=== PATIENT | female | born 1995 | race Caucasian/White ===

== ENCOUNTER 2022-07-15 14:20 | Inpatient (IN) | payer SELFPAY ==
[2022-07-15 14:45] VITALS: BP 116/67; PULSE 90; RESP 16; TEMP 37.1; O2SAT 98
[2022-07-15 15:26] LABS: Absolute Lymphocyte Count 1.56 X10^3/uL (0.83-4.51); Absolute Neutrophil Count 16.7 X10^3/uL (2.0-7.7); Basophil# 0.03 X10^3/uL; Basophil% 0.2 % (0-1); Hematocrit 34.2 % (37-47); Hemoglobin 11.8 g/dL (12.0-15.0); Lymphocyte # 1.56 X10^3/ul (0.83-4.51); Lymphocyte % 8.1 % (19-41); Mean Corp Hgb Conc 34.5 g/dL (32-36); Mean Corpuscular Hgb 31.4 pg (27.0-32.0); Mean Platelet Vol. 10.3 fl (6.2-12.0); Monocyte# 0.76 X10^3/uL; NRBC Flagged by Analyzer 0 % (0-5); Neutrophil # 16.74 X10^3/uL (2.7-7.7); Platelet Count 242 K/mm3 (150-450); RBC Distribution Width CV 12.4 % (11.6-14.6); RBC Distribution Width SD 40.7 fl (35.1-43.9); Red Blood Count 3.76 M/mm3 (4.2-5.4); White Blood Count 19.2 K/mm3 (4.4-11.0)
[2022-07-15 16:25] LABS: Syphilis Antibodies Non-reactive
[2022-07-15 16:51] LABS: HIV - WCH Non-Reactive (Nonreactive); Hepatitis C Antibody Non-Reactive (Nonreactive)
--- NOTE | 2022-07-15 17:06 | HP.PCM.OB_ITS ---
HPI - General General Date of Admission: 07/15/22 HPI Narrative TAYE SANDHU, is a 26 y/o status post vaginal delivery today who presents to L&D as a transfer from [facility] for monitoring after delivery due to protocol at [facility] for delivery before 37 weeks. She was 36 weeks 2 days when she delivered spontaneously without complications. She experienced a 1st degree perineal laceration but prefer to heal naturally without stitches. Her bleeding is minimal and she denies dizziness, shortness of breath, or chest pain. [facility] Medical History (Updated 07/15/22 @ 16:11 by Krystal Kirkpatrick) Depression Home Medications [id number] 1 mg tablet 1 tab PO DAILY 07/15/22 [History Last Taken Unknown] Allergy/AdvReac Type Severity Reaction Status Date / Time No Known Allergies Allergy Verified 07/15/22 15:44 Social History Smoking Status: Never smoker History Elective abortions Hx Para 0 Spontaneous abortions Hx # Term Pregnancies Ectopic pregnancies Hx # Pregnancies Multiple births # of living children ROS Constitutional Constitutional: Denies change in weight, fatigue, fever(s), headache(s), poor appetite or weakness Eyes Eyes: Denies blurry vision, change in vision, seeing flashes or spots in vision ENT HEENT: Denies dizziness, headache(s), loss taste/smell or sore throat Cardiovascular Cardiovascular: Denies chest pain, dizziness, dyspnea, irregular heart rhythm, leg edema, palpitations, rapid heart rate or vomiting Respiratory/Chest Respiratory/Chest: Denies chest tightness, cough, dyspnea or breast pain Gastrointestinal Gastrointestinal: Denies abdominal pain, anorexia, constipation, cramping, diarrhea, hemorrhoids, vomiting or weight changes Genitourinary Genitourinary: Denies dysuria, flank pain, genital lesions, genital pain, urinary frequency or urinary urgency Musculoskeletal Musculoskeletal: Denies back pain, difficulty walking, joint pain, limited range of motion, muscle cramps or numbness Integumentary Integumentary: Denies lesions or unusual bruising Neurologic Neurologic: Denies abnormal movements, abnormal speech, dizziness, numbness, seizure-like activity or syncope Psychiatric Psychiatric: Denies anxiety, behavioral changes, change in appetite, change in libido, cognitive impairment, confusion, depression, difficulty concentrating, hallucinations or suicidal thoughts Endocrine Endocrinology: Denies excessive sweating, polydipsia or polyuria Hematologic/Lymphatic Hematologic/Lymphatic: Denies easy bleeding, easy bruising or lymphadenopathy Allergic/Immunologic Allergic/Immunologic: Denies itchy eyes, lip swelling, seasonal rhinorrhea, rhinitis, throat swelling, tongue swelling, eczemia, wheezing or asthma Vital Signs Vital Signs Vital Signs: 07/15/22 14:45 Temperature 98.8 F Temperature Source Temporal Pulse Rate 90 Respiratory Rate 16 Blood Pressure [BP] 116/67 Blood Pressure Mean [BP] 83 Blood Pressure Source [BP] Monitor Pulse Ox 98 Oxygen Delivery Method Room Air Physical Exam Const alert, oriented x3, no apparent distress and healthy appearing General Appearance: cooperative; Negative for anxious HEENT normocephalic Face and Sinus: normal facial exam Eyes EOMs intact bilaterally and no scleral icterus General Eye: normal appearance of both eyes Neck full ROM and supple Lymph Lymphatic: no lymphadenopathy noted Chest Chest: abnormal inspection of the chest Resp normal respiratory effort Effort and Inspection: able to speak in complete sentences Cardio regular rate GI soft to palpation and non-tender Palpation: soft; Negative for tender Uterus Palpation: uterus fundus firm (below umbilicus ) Back/Spine no CVA tenderness Extremity normal to inspection, full ROM and no clubbing, cyanosis or edema General Extremity: Negative for calf tenderness or edema Skin Lesions: no lesions Rashes: no rashes Psych mental status grossly normal Labs Labs Labs: Blood Type A POSITIVE Antibody Screen NEGATIVE Hct 34.2 % (37-47) L Hgb 11.8 g/dL (12.0-15.0) L Syphilis Total Ab Non-reactive HIV 1&2 Antibody Non-Reactive (Nonreactive) Assessment & Plan (1) Status post vaginal delivery: COMMENT: status post at [facility] PLAN: management as per routine regular diet may remove IV now as hg is stable, bleeding slowed down and pain well controlled if infant is cleared by peds will dc to home tomorrow.
[2022-07-15 19:48] VITALS: BP 128/69; RESP 14; TEMP 37
[2022-07-15 23:25] VITALS: BP 108/40; PULSE 86; RESP 15; TEMP 36.6
[2022-07-16 03:51] VITALS: BP 120/49; PULSE 77; RESP 15; TEMP 36.1
--- NOTE | 2022-07-16 08:25 | PCM.PN.OB ---
Subjective Subjective Patient doing well without complaints. Tolerating PO. Ambulating and voiding without difficulty. Feeding well. Denies chest pain, shortness of breath, calf pain/swelling, fevers, chills, lightheadedness. Objective Data Objective Data Vital Signs: Vital Signs Temp Pulse Resp BP Pulse Ox O2 Del Method 97.0 F L 77 15 120/49 L 98 Room Air 07/16/22 03:51 07/16/22 03:51 07/16/22 03:51 07/16/22 03:51 07/15/22 14:45 07/16/22 03:51 Oxygen Delivery Method Room Air Intake & Output: Intake and Output for Last 24 Hours 07/14/22 07/15/22 07/16/22 23:59 23:59 23:59 Output Total 500 / 500 Balance -500 / -500 Lab / Micro Data Result Diagrams: 07/15/22 15:10 Labs: Laboratory Results - last 24 hr 07/15/22 15:10: WBC 19.2 H, RBC 3.76 L, Hgb 11.8 L, Hct 34.2 L, MCV 91.0, MCH 31.4, MCHC 34.5, RDW Std Deviation 40.7, RDW Coeff of [place] 12.4, Plt Count 242, MPV 10.3, Immature Gran % (Auto) 0.700, Neut % (Auto) 87.0 H, Lymph % (Auto) 8.1 L, [place] % (Auto) 4.0, Eos % (Auto) 0.0, Baso % (Auto) 0.2, Absolute Neuts (auto) 16.7 H, Absolute Lymphs (auto) 1.56, Nucleated RBC % 0 07/15/22 15:10: Syphilis Total Ab Non-reactive 07/15/22 15:10: Blood Type A POSITIVE, Antibody Screen NEGATIVE 07/15/22 15:10: Hepatitis C Antibody Non-Reactive, HIV 1&2 Antibody Non-Reactive Physical Exam Const alert, oriented x3 and no apparent distress Chest inspection of chest normal Nipple/Areola: nipples/areola normal Resp normal respiratory effort, normal air movement and no retractions Cardio regular rate and regular rhythm GI GI Narrative: fundus firm 1 below u, scant lochia, no clots. Extremity normal to inspection, full ROM, no calf tenderness and no pedal edema Skin no rashes or lesions noted Assessment & Plan (1) Status post vaginal delivery: COMMENT: status post at [facility] PLAN: s/p PPD # 1 1. routine post delivery care 2. breast feeding- support given, involved 3. rh positive 4. rubella immune 5. if infant stable for d/c may be d/c today.
[2022-07-16 09:20] VITALS: BP 111/71; PULSE 80; RESP 16; TEMP 36.1; O2SAT 96
--- NOTE | 2022-07-16 10:30 | CASEMGMT ---
Social Work Assessment Labor and Delivery Unit Patient Address: [address] [place], [place] Phone number: [phone] Date of Referral: 07/15/22 Time of Referral:? 17:59 Referred By: Daren Samayoa Date of Intervention: 07/16/22? Time of Intervention:? 10:30 Reason for Referral: hx depression History obtained from: medical records, mother of baby (MOB) and father of baby (FOB) Household composition: MOB reports she and FOB own their home with NB, no pets nor housing concerns. Patient's parent/guardian status: MOB reports she has been to [address] [address], for two years. FOJerel is actively involved with MOB and NB, with no other children. MOB reports no concerns of DV, AOD or MH for FOB. 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 This is MOB?s first , NB is baby girl Salvador, born [birth year], apgars 9/9, weighing 2530g. MOB report NB?s steward/stewardess dining room will be MD Grace, plan is to breast feed and no plans for control at this time. Educational Status: MOB reports highest level of education is elementary grade, no learning concerns. Financial Status: MOB reports no financial concerns. ? Supplies: MOB reports having clothing and other supplies but does not have a car seat. Childcare/Caregiver(s): MOB will be home with NB, and MOB?s sister will assist with home child care provider when needed. ?? Transportation: MOB report utilizing horse and buggy or drivers as needed. ??? Programs/Agencies Involved: ??no community agency involvement, MOB declined referrals Children Services/Legal Issues: None reported??? Behavioral Health Issues: ??Mental Health History:? MOB reports history of depression years ago but reports not struggling with symptoms since. MOB is not currently engaged in counseling services nor wanting referral. No AOD history and never a smoker. Family/Social Stressors:? No stressors identified. Support Systems: MOB reports she is supported by ARIANA, FOJerel?s family and MOBs parents and siblings. Depression/Shaken Baby/Safe Sleeping: SW educated MOB on depression/anxiety as well as shaken baby and safe sleep. MOB report NB will be sleeping in a basinet in their room. SW provided MOB with educational information as well as resources on the topics. MOB report understanding and voice no other needs. SW encouraged MOB to contact OB or PCP if she is concerned with symptoms. ??? ASSESSMENT:? SW met with MOB and introduced herself and role as [facility] Production Department Supervisor. MOB in agreement to speak with SW with FOB present. SW utilized open and close ended questions to gather information needed for an assessment. MOB report having supplies needed, identified supports, is not engaged in community resources and denies referrals. MOB reports history of depression but hasn?t experienced symptoms in years, no AOD history for MOB or FOB. SW educated MOB on safe sleep, shaken baby and PPD/A. SW also provided local resources for [facility]. SW provided community resources, no other needs voiced. MOB?s RN expressed MOB is requesting assistance with car seat. SW unable to contact [employer] as their office is closed until Tuesday and [facility] no answer phones. SW encouraged patient to contact wagon driver or family to inquire about options. ABEBE informed by RN, MOB?s wagon driver was able to purchase car seat from [employer] and brought it into [facility]. PLAN:? ?No other services requested or indicated. Megan Hurd STOREKEEPER STEWARD, [place]UR[place]
[2022-07-16 14:19] VITALS: BP 116/66; PULSE 88; RESP 16; TEMP 36.6; O2SAT 97
[2022-07-16 20:23] VITALS: BP 114/64; PULSE 84; RESP 16; TEMP 36.7; O2SAT 98
--- NOTE | 2022-07-20 14:02 | NURSING ---
attempted follow-up phone call, no answer.
== END 2022-07-16 11:51 | disposition home or self-care (01) | DRG 776 ==
PROVIDERS: Admitting Provider Obstetrics & Gynecology; PCP Family Medicine; Visit Provider Obstetrics & Gynecology
DX: Z39.0 Encounter for care and examination of mother immediately after delivery (principal)
CPT/HCPCS: 85025; 86703; 86780; 86803; 86850; 86900; 86901